=== PATIENT | male | born 1980 | race Two or more races ===

== ENCOUNTER 2017-06-03 11:25 | Emergency (ER) | payer OTHER ==
[2017-06-03 11:38] VITALS: BMI 23.6
--- NOTE | 2017-06-03 12:08 | PDOC ---
History of Present Illness - General Chief Complaint: Chest Pain Stated Complaint: CHEST PAIN Time Seen by Provider: 06/03/17 12:08 - History of Present Illness Initial Comments: 36 year old male with PMH of IVDU (currently on methadone with last use 3 years prior) presenting with sudden onset chest pain three days prior, abdominal fullness for the past three days, and 3 months of headache. Patient states that he was playing dominos on Saturday05/31/17 and he had sudden onset right sided chest pain that he describes as sharp, positional, and pleuritic with gradually increasing intensity over the past few days. Denies any cough, hemoptysis, recent sick contacts, fevers, chills, or SOB (with exception to pain when deeply inspiring). Also states he has had an intermittent right sided achy headache for the past three months for which he was supposed to get an MRI ordered by his PCP (Dr. Saha). His abdominal fullness also started this past Saturday in the setting of slightly worsened constipation. His headache is slightly improved with tylenol and ibuprofen. His appetite is slightly worse because this sensation of abdominal fullness. Upon further interrogation, he complains of increased urinary frequency. He denies fevers chills, neurological symptoms, visual symptoms, recent travel, leg swelling, falls, syncope, lightheadedness, palpitations, hematuria, hematochezia, melena, or other symptoms. 06/03/17 12:33 Past History - Past Medical History Allergies/Adverse Reactions: Allergies Allergy/AdvReac Type Severity Reaction Status Date / Time No Known Allergies Allergy Verified 06/03/17 11:32 COPD: No Psychiatric Problems: No (hx of drug abuse, on methadone) - Suicide/Smoking/Psychosocial Hx Smoking History: Current every day smoker Have you smoked in the past 12 months: Yes Information on smoking cessation initiated: Yes 'Breaking Loose' booklet given: 06/03/17 Hx Alcohol Use: No Drug/Substance Use Hx: No Substance Use Type: None Review of Systems - Review of Systems Constitutional: No: Chills, Diaphoresis, Fever HEENTM: No: Blurred Vision, Tearing, Recent change in vision, Double Vision Respiratory: No: Cough, Shortness of Breath, Stridor, Productive cough, Hemoptysis Cardiac (ROS): Yes: Chest Pain. No: Edema, Irregular Heart Rate, Lightheadedness, Palpitations, Syncope, Chest Tightness ABD/GI: Yes: Abdominal Distended, Constipated, Poor Appetite. No: Blood Streaked Bowels, Diarrhea, Nausea, Rectal Bleeding, Vomiting, Indigestion, Tarry Stools : Yes: Urgency. No: Burning, Dysuria, Discharge Musculoskeletal: No: Back Pain, Joint Pain, Muscle Weakness Integumentary: No: Bruising, Change in Color, Erythema, Flushing Neurological: Yes: Headache. No: Numbness, Paresthesia, Tingling, Unsteady Gait , Ataxia, Dizziness Endocrine: No: Excessive Sweating, Flushing Hematologic/Lymphatic: No: Anemia, Blood Clots, Easy Bleeding *Physical Exam - Vital Signs Last Vital Signs Temp Pulse Resp BP Pulse Ox 98.0 F 77 18 140/90 100 06/03/17 11:34 06/03/17 11:34 06/03/17 11:34 06/03/17 11:34 06/03/17 11:34 - Physical Exam General Appearance: Yes: Nourished, Appropriately Dressed. No: Apparent Distress HEENT: positive: EOMI, JYOTI, Normal ENT Inspection, Normal Voice Neck: positive: Trachea midline, Normal Thyroid, Supple. negative: Tender, Rigid Respiratory/Chest: positive: Chest Tender (reproducible tenderness over right 2- 3 rd rib), Lungs Clear, Normal Breath Sounds. negative: Respiratory Distress, Accessory Muscle Use Cardiovascular: positive: Regular Rhythm, Regular Rate Gastrointestinal/Abdominal: positive: Normal Bowel Sounds, Flat, Soft. negative : Tender Musculoskeletal: positive: Normal Inspection. negative: CVA Tenderness Extremity: positive: Normal Capillary Refill, Normal Inspection, Normal Range of Motion. 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 negative: Abnormal Cranial NS , EOM Palsy, Facial Droop, Numbness, Confused, Disoriented, Depressed Affect ED Treatment Course - LABORATORY CBC & Chemistry Diagram: 06/03/17 13:40 06/03/17 13:40 Medical Decision Making - Medical Decision Making CXR, abd, XR, CT with con negative for fracture, pe, pnemothorax or pna. There was note of a 0.6 cm RUL nodule that could be the source of the pain but will be followed up with as an outpatient. Pain better with Tylenol and Toradol. Will DC with return precautions and pcp follow up as this is likely a muscular strain but this nodule shuld be followed up as well. 06/03/17 17:41 *DC/Admit/Observation/Transfer Diagnosis at time of Disposition: Chest pain Qualifiers: Chest pain type: chest pain on breathing Qualified Code(s): R07.1 - Chest pain on breathing; R07.81 - Pleurodynia - Discharge Dispostion Disposition: HOME Condition at time of disposition: Improved Admit: No - Referrals Referrals: Mingo Saha MD [Primary Care Provider] - - Patient Instructions Printed Discharge Instructions: DI for Atypical Chest Pain Additional Instructions: Please use Tylenol or ibuprofen for the chest pain. You need to have another CT of your chest to follow this nodule and make sure it is not increasing in size. Please follow up with Dr. Saha in 3 days to determine the best options for follow up. Please return to the ED for any new or worsening symptoms. - Post Discharge Activity
[2017-06-03 12:54] LABS: HCG,QUALITATIVE URINE NEGATIVE
[2017-06-03 12:55] LABS: URINE APPEARANCE CLEAR; URINE BILIRUBIN NEGATIVE (<2.0 mg/dL); URINE BLOOD NEGATIVE (NEGATIVE); URINE COLOR LTYELLOW; URINE GLUCOSE (UA) NEGATIVE (NEGATIVE); URINE KETONE NEGATIVE (NEGATIVE); URINE LEUK ESTERASE TRACE (NEGATIVE); URINE NITRITE NEGATIVE (NEGATIVE); URINE PROTEIN NEGATIVE (NEGATIVE); URINE UROBILINOGEN NEGATIVE mg/dL (0.2-1.0)
[2017-06-03 13:17] LABS: COCAINE, UR NEGATIVE ng/ml (CUTOFF=300); OPIATES, URI NEGATIVE ng/ml (CUTOFF=300); PHENCYCLIDINE,URINE NEGATIVE ng/ml (CUTOFF=25); URINE AMPHETAMINES NEGATIVE ng/ml (CUTOFF=500); URINE BARBITURATES NEGATIVE ng/ml (CUTOFF=200); URINE BENZODIAZEPINES NEGATIVE ng/ml (CUTOFF=200)
--- NOTE | 2017-06-03 13:17 | PDOC ---
Attending Attestation - Resident Resident Name: BeccaAmericomarionjose a - ED Attending Attestation I have performed the following: I have examined & evaluated the patient, The case was reviewed & discussed with the resident, I agree w/resident's findings & plan, Exceptions are as noted - HPI HPI: 06/05/17 10:32 Mr Miramontes is a 36 yo M h/o IVDU (currently on methadone) presenting with sudden onset chest pain, which started 3 days ago. Right sided chest pain, described as sharp, positional, pleuritic and worsening. No cough No recent travel No fevers, chills cough Pt also notes abdominal fullness No vomiting or diarrhea - Physicial Exam PE: 06/05/17 10:34 General Appearance: Yes: Nourished, Appropriately Dressed. No: Apparent Distress Respiratory/Chest: positive: Chest Tender (reproducible tenderness over right 2- 3 rd rib), Lungs Clear, Normal Breath Sounds. Cardiovascular: positive: Regular Rhythm, Regular Rate Gastrointestinal/Abdominal: positive: Normal Bowel Sounds, Flat, Soft. Extremity: positive: Normal Capillary Refill, Normal Inspection, Normal Range of Motion. 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 - Medical Decision Making 06/05/17 10:36 36 yo M presenting with a complaint of chest pain Sudden onset, located in the right chest, no radiation Pain is pleuritic which is concerning for PE Will do labs Will do CT Will give pain meds 06/05/17 10:37 Laboratory Tests 06/03/17 06/03/17 06/03/17 12:25 13:40 13:40 WBC 7.3 Hgb 13.8 Hct 40.4 Plt Count 195 Creatine Kinase 92 Troponin I < 0.02 Urine Blood Negative Ur Leukocyte Esterase Trace Urine WBC (Auto) <1 Urine RBC (Auto) <1 CTA pending Pt signed out to Dr Mack Clinical Impression: chest pain, initial presentation
[2017-06-03 13:19] LABS: METHADONE, UR POSITIVE ng/ml (CUTOFF=300)
[2017-06-03 13:50] LABS: HEMATOCRIT 40.4 % (35.4-49); HEMOGLOBIN 13.8 GM/dL (11.7-16.9); LYMPH % 32.9 % (8-40); MCH 28.5 pg (25.7-33.7); MCHC 34.2 g/dl (32.0-35.9); MEAN CELL VOLUME 83.4 fl (80-96); MEAN PLT VOLUME 9.1 fl (7.5-11.1); MONO % 7.4 % (3.8-10.2); NEUT % 54.7 % (42.8-82.8); PLATELET COUNT 195 K/MM3 (134-434); RBC 4.84 M/mm3 (4.00-5.60); RDW 13.8 % (11.9-15.9); WHITE BLOOD COUNT 7.3 K/mm3 (4.0-10.0)
[2017-06-03 14:13] LABS: AMYLASE 85 U/L (25-115); ANION GAP 10 (8-16); BLOOD UREA NITROGEN 12 mg/dL (7-18); CALCIUM 9.1 mg/dL (8.5-10.1); CHLORIDE 101 mmol/L (98-107); CO2 29 mmol/L (21-32); CREATININE 0.9 mg/dL (0.7-1.3); GLUCOSE,RANDOM 76 mg/dL (74-106); LIPASE 138 U/L (73-393); POTASSIUM 4.5 mmol/L (3.5-5.1); SGOT/AST 18 U/L (15-37); SGPT/ALT 18 U/L (12-78); SODIUM 140 mmol/L (136-145)
[2017-06-03 14:17] LABS: ALK PHOS 67 U/L (45-117); BILIRUBIN,TOTAL 0.4 mg/dL (0.2-1.0); TOT PROT 7.9 g/dl (6.4-8.2)
[2017-06-03] MEDS ORDERED: ACETAMINOPHEN 500 MG TABLET (FP) PO ONE (14:52)
--- NOTE | 2017-06-03 15:08 | EKG ---
Test Reason : Blood Pressure : / mmHG Vent. Rate : 074 BPM Atrial Rate : 074 BPM P-R Int : 150 ms QRS Dur : 084 ms QT Int : 382 ms P-R-T Axes : 053 -02 -01 degrees QTc Int : 424 ms NORMAL SINUS RHYTHM NONSPECIFIC T WAVE ABNORMALITY ABNORMAL ECG NO PREVIOUS ECGS AVAILABLE Confirmed by KATHERINE VIDAL MD ([id number]) on 06/03/2017 3:08:10 PM Referred By: Confirmed By:KATHERINE VIDAL MD
[2017-06-03] MEDS ORDERED: ACETAMINOPHEN 325 MG TABLET (FP) ONE (15:19)
[2017-06-03] MEDS ORDERED: SODIUM CHLORIDE 0.9% 500 ML INFUS.BAG IV ONE (16:58)
[2017-06-03] MEDS ORDERED: KETOROLAC TROMETHAMINE 15 MG/ML VIAL IVPUSH ONE (16:59)
[2017-06-03] MEDS ORDERED: KETOROLAC TROMETHAMINE 15 MG/ML VIAL ONE (17:00)
[2017-06-03 18:28] VITALS: BP 135/81; PULSE 66; TEMP 97.5
--- NOTE | 2017-06-04 13:40 | EKG ---
Test Reason : Blood Pressure : / mmHG Vent. Rate : 063 BPM Atrial Rate : 063 BPM P-R Int : 142 ms QRS Dur : 090 ms QT Int : 436 ms P-R-T Axes : 020 010 005 degrees QTc Int : 446 ms NORMAL SINUS RHYTHM NORMAL ECG WHEN COMPARED WITH ECG OF 03-JUN-2017 11:31, NONSPECIFIC T WAVE ABNORMALITY HAS REPLACED INVERTED T WAVES IN ANTERIOR LEADS Confirmed by MD NASREEN, KEVIN ([id number]) on 06/04/2017 1:40:14 PM Referred By: Confirmed By:KEVIN DOWNEY MD
== END 2017-06-03 18:28 | disposition home or self-care (01) ==
LOC: JER 11:25
PROC: 3E0233Z Introduction of Anti-inflammatory into Muscle, Percutaneous Approach (ICD-10-PCS; principal; 2017-06-03)
DX: R07.1 Chest pain on breathing (principal); F17.210 Nicotine dependence, cigarettes, uncomplicated
CPT/HCPCS: 36415; 71046-TC-FY; 71260-TC; 74021-TC-FY; 80053; 80307; 81003; 81015; 82150; 82550; 83690; 84484; 84703; 85025; 93005; 93010; 96372; 99283-25